=== PATIENT | male | born 1960 | race Caucasian/White ===

== ENCOUNTER → 2017-03-10 | Outpatient (REF) ==
[~2017-03-10] MED LIST: ALLEGRA 60MG TA60 MG PO; COMBIVENT INH14.7 GM IH; HCTZ; HYDROCORTISONE ACETA; LEVOTHYROXINE PO
[2017-03-10 10:00] LABS: PSA-TOTAL 0.7 ng/mL (0-4)
== END ==
LOC: ZLAB.WCH 08:39
PROVIDERS: Internal Medicine
DX: Z01.89 Encounter for other specified special examinations (principal)
CPT/HCPCS: G0103